=== PATIENT | female | born 1955 | race Caucasian/White ===

== ENCOUNTER 2025-03-03 14:57 | Emergency (ER) | payer MEDICARE, SELFPAY ==
[2025-03-03 14:58] VITALS: BP 139/68; PULSE 70; RESP 16; TEMP 36.8; O2SAT 100
--- NOTE | 2025-03-03 15:10 | EKG12_ITS ---
Test Reason : SYNCOPE Blood Pressure : */* mmHG Vent. Rate : 64 BPM Atrial Rate : 64 BPM P-R Int : 154 ms QRS Dur : 108 ms QT Int : 434 ms P-R-T Axes : 77 -48 47 degrees QTcB Int : 447 ms Normal sinus rhythm with sinus arrhythmia Left anterior fascicular block Moderate voltage criteria for LVH, may be normal variant ( R in aVL , Ever product ) Abnormal ECG Confirmed by Selwyn Crow ([id number]), editor in chief newspaper YOMAIRA GUERIN ([id number]) on 03/06/2025 5:50:45 AM Referred By: Confirmed By: Selwyn Crow
--- NOTE | 2025-03-03 15:12 | ED.RN ---
done by ems
[2025-03-03 15:29] LABS: Hematocrit 38.8 % (37-47); Hemoglobin 13.2 g/dL (12.0-15.0); Immature Granulocytes Count 0.010 X10^3/uL (0.0-0.0); Mean Corp Hgb Conc 34.0 g/dL (32-36); Mean Corpuscular Volume 96.3 fL (81-99); Mean Platelet Vol. 10.3 fl (6.2-12.0); NRBC Flagged by Analyzer 0 % (0-5); Platelet Count 256 K/mm3 (150-450); RBC Distribution Width CV 12.4 % (11.6-14.6); RBC Distribution Width SD 43.8 fl (35.1-43.9); Red Blood Count 4.03 M/mm3 (4.2-5.4); White Blood Count 5.7 K/mm3 (4.4-11.0)
[2025-03-03 16:09] LABS: AST(SGOT) 24 U/L (<=31); Alanine Aminotransfer ALT/SGPT 18 U/L (<=34); Albumin, Serum 4.2 g/dL (3.4-4.8); Alkaline Phosphatase 113 U/L (35-104); Anion Gap 11 (5-15); BUN 13 mg/dL (4-19); BUN/Creat Ratio 18.1 RATIO (10-20); Calcium,Total 9.3 mg/dL (7.6-11.0); Carbon Dioxide 24.8 mmol/L (21.0-32.0); Chloride 104 mmol/L (98-108); Globulin 2.7 g/dL (2.2-4.2); Glucose 164 mg/dL (70-99); Potassium 3.2 mmol/L (3.3-5.1)
[2025-03-03 16:45] VITALS: BMI 28.9
[2025-03-03 16:46] VITALS: BP 142/70; PULSE 77; RESP 16; O2SAT 100
[2025-03-03 16:48] VITALS: BP 138/77; BP 143/71; BP 153/87; PULSE 78; PULSE 81; PULSE 88
[2025-03-03 17:18] LABS: Magnesium 2.2 mg/dL (1.5-2.2)
--- NOTE | 2025-03-03 17:29 | EX.ED.DYSGE1 ---
HPI History of Present Illness Chief Complaint: Syncope Narrative Narrative: Chief complaint and HPI: 70-year-old female with no significant past medical history presents for evaluation of near syncope. [place] States she was sitting down when she developed near syncope. Describes lightheadedness, nausea, felt like she was going to need to have a bowel movement such as diarrhea. States she never had a bowel movement. She went to the [facility] and brought to the emergency department for further evaluation. Patient state she has drank less water today than she usually does. She states her symptoms have since resolved. She denies any fever, chills, shortness of breath, chest pain, abdominal pain, dysuria, weakness, numbness/tingling. Review of systems: See HPI Medications: As listed on the chart Allergies: As listed on the chart PFSH: Per chart Vital signs: As listed on the chart. Reviewed. Physical exam: Gen: A&O x3, NAD Head: Normocephalic, atraumatic Eyes: No sclera icterus, conjunctiva clear, PERRL, EOMI ENT: Moist mucous membranes Neck: Trachea midline, No JVD, full range of motion CV: RRR, no murmurs, no peripheral edema Resp: Lungs CTA BL, no w/r/c GI: Abd soft, non-distended, non-tender, no r/r/g Musc: Full ROM, no deformity, strength+5/5 in all extremities Skin: Warm, dry Neuro: Alert, oriented, grossly intact, sensation intact Psych: Cooperative, appropriate mood and affect PFSH PFSH Medical History no medical history Home Medications ?Medication ?Instructions ?Recorded ?Last Taken ?Type NK 03/03/25 Unknown History Allergy/AdvReac Type Severity Reaction Status Date / Time Penicillins Allergy Rash Verified 03/03/25 15:03 Social History Smoking Status: Never smoker EXAM Physical Exam Const Vital Signs: 03/03/25 14:58 03/03/25 16:46 03/03/25 16:46 Temperature 98.3 F Temperature Source Oral Pulse Rate 70 77 Pulse Rate [Lying] Pulse Rate [Sitting (for 1 minute prior to obtaining)] Pulse Rate [Standing (for 1 minute prior to obtaining)] Respiratory Rate 16 16 Respiratory Effort Respiratory Pattern Blood Pressure 139/68 H 142/70 H Blood Pressure [Lying] Blood Pressure [Sitting (for 1 minute prior to obtaining)] Blood Pressure [Standing (for 1 minute prior to obtaining)] Blood Pressure Mean 91 94 Blood Pressure Mean [Lying] Blood Pressure Mean [Sitting (for 1 minute prior to obtaining)] Blood Pressure Mean [Standing (for 1 minute prior to obtaining)] Pulse Ox 100 100 100 Oxygen Delivery Method Room Air Room Air Room Air 03/03/25 16:48 03/03/25 16:53 03/03/25 17:40 Temperature Temperature Source Pulse Rate 76 Pulse Rate [Lying] 81 Pulse Rate [Sitting (for 1 minute prior to obtaining)] 78 Pulse Rate [Standing (for 1 minute prior to obtaining)] 88 Respiratory Rate 16 Respiratory Effort Normal Respiratory Pattern Normal Blood Pressure 147/74 H Blood Pressure [Lying] 138/77 H Blood Pressure [Sitting (for 1 minute prior to obtaining)] 143/71 H Blood Pressure [Standing (for 1 minute prior to obtaining)] 153/87 H Blood Pressure Mean 98 Blood Pressure Mean [Lying] 97 Blood Pressure Mean [Sitting (for 1 minute prior to obtaining)] 95 Blood Pressure Mean [Standing (for 1 minute prior to obtaining)] 109 Pulse Ox 98 Oxygen Delivery Method Room Air 03/03/25 19:10 Temperature Temperature Source Pulse Rate 66 Pulse Rate [Lying] Pulse Rate [Sitting (for 1 minute prior to obtaining)] Pulse Rate [Standing (for 1 minute prior to obtaining)] Respiratory Rate 16 Respiratory Effort Respiratory Pattern Blood Pressure 162/84 H Blood Pressure [Lying] Blood Pressure [Sitting (for 1 minute prior to obtaining)] Blood Pressure [Standing (for 1 minute prior to obtaining)] Blood Pressure Mean 110 Blood Pressure Mean [Lying] Blood Pressure Mean [Sitting (for 1 minute prior to obtaining)] Blood Pressure Mean [Standing (for 1 minute prior to obtaining)] Pulse Ox 99 Oxygen Delivery Method Room Air MDM MDM MDM Narrative Medical decision making narrative: 70-year-old female with no significant past medical history presents for evaluation of near syncope. Patient [place]. States she was sitting down when she developed near syncope. Describes lightheadedness, nausea, felt like she was going to need to have a bowel movement such as diarrhea. States she never had a bowel movement. She went to the [place] [facility] and brought to the emergency department for further evaluation. Symptoms have since resolved. On presentation, patient no acute distress. Nontoxic-appearing. Mildly hypertensive. Differential diagnosis includes but is not limited to dehydration, electrolyte abnormality, arrhythmia, anemia, UTI, less likely ACS. Partial laboratory protocol was started in triage. Orthostatic vital signs negative. NS bolus ordered. EKG and chest x-ray reviewed, see below. CBC unremarkable. No anemia leukocytosis. CMP relatively unremarkable except for hypokalemia of 3.2. P.o. potassium ordered. Magnesium level unremarkable. Troponin unremarkable x 2. UA negative for UTI. At this point in time, no clear etiology for patient's near syncope. Suspect mild dehydration. She is ambulated in the emergency department without difficulty. She is currently asymptomatic. Follow-up with PCP. She confirmed understand the plan. Patient stable to discharge home EKG: Interpreted by me/EM physician: EKG shows normal sinus rhythm with sinus arrhythmia. No ST elevation. Heart rate 64 Diagnostic: Interpreted by me/EM physician: Chest x-ray without pneumonia, effusion, cardiomegaly, pneumothorax Impression: 1. Near syncope 2. Mild hypokalemia Lab Data Labs: Laboratory Results - last 24 hr 03/03/25 03/03/25 03/03/25 15:20 17:42 17:46 WBC 5.7 RBC 4.03 L Hgb 13.2 Hct 38.8 MCV 96.3 MCH 32.8 H MCHC 34.0 RDW Std Deviation 43.8 RDW Coeff of [place] 12.4 Plt Count 256 MPV 10.3 Immature Gran % (Auto) 0.200 Neut % (Auto) 65.4 Lymph % (Auto) 25.7 Stanley % (Auto) 6.9 Eos % (Auto) 0.9 Baso % (Auto) 0.9 Absolute Neuts (auto) 3.7 Absolute Lymphs (auto) 1.46 Nucleated RBC % 0 Sodium 140 Potassium 3.2 L Chloride 104 Carbon Dioxide 24.8 Anion Gap 11 BUN 13 Creatinine 0.73 Est GFR (MDRD) Non-Af 87 BUN/Creatinine Ratio 18.1 Glucose 164 H Calcium 9.3 Magnesium 2.2 Total Bilirubin 0.36 AST 24 ALT 18 Alkaline Phosphatase 113 H Troponin T High Sens 13 Troponin T Hi Sens 2 Hr 10 Total Protein 6.9 Albumin 4.2 Globulin 2.7 Albumin/Globulin Ratio 1.6 Urine Color Yellow Urine Clarity Clear Urine pH 6.5 Ur Specific [place] 1.010 Urine Protein 15 H Urine Glucose (UA) Normal Urine Ketones Negative Urine Occult Blood Negative Urine Nitrite Negative Urine Bilirubin Negative Urine Urobilinogen Normal Ur Leukocyte Esterase Negative Urine RBC 0 SEEN Urine WBC 0 SEEN Ur Squamous Epith Cells 0 SEEN Urine Bacteria 0 SEEN Urine Mucus 0 SEEN Radiography Diagnostic Testing: Clinical Impression(s) from Imaging Studies Chest X-Ray 03/03/25 18:10 IMPRESSION: No radiographic evidence for an acute pulmonary infiltrate. - Chronic findings discussed above. Reading Location: [id number] Discharge Plan Triage Chief Complaint: Syncope ED Provider: Torres Church Dx/Rx/DC Orders Prescriptions: No Action NK Primary Care Provider: EDA CHICAS Referrals: EDA CHICAS DO [Primary Care Provider] - Print Language: Japanese
[2025-03-03 17:36] LABS: Troponin T High Sensitivity 13 ng/L (<=14)
[2025-03-03] MEDS: 0.9% Normal Saline (1000mL) 1,000 ML 1000 ML IV (17:36)
[2025-03-03] MEDS: Potassium Chloride Oral Soln 20 MEQ/15 ML UDC 40 MEQ PO (17:37)
[2025-03-03 17:40] VITALS: BP 147/74; PULSE 76; RESP 16; O2SAT 98
[2025-03-03 17:47] LABS: Mucous, Urine 0 SEEN /hpf (<or=2+); Red Blood Cells-Urine 0 SEEN /hpf (0-5); Squamous Epithelial Cells - UA 0 SEEN /hpf (5-10)
[2025-03-03 17:49] LABS: Glucose, Dipstick Normal (Normal); Ketone-Dipstick Negative (Negative); Leukocyte Esterase-Dipstick Negative /ul (Negative); Nitrite-Dipstick Negative (Negative); Occult Blood-Urine Negative /ul (Negative); Protein-Dipstick 15 mg/dl (Negative); Specific Gravity, Urine 1.010 (1.002-1.030); Urine Bilirubin Dipstick Negative (Negative)
[2025-03-03 18:01] LABS: Color, Urine Yellow (Yellow)
--- NOTE | 2025-03-03 18:10 | RAD_ITS ---
PROCEDURE: CHEST PA AND LATERAL 03/03/2025 REASON FOR EXAM: NEAR SYNCOPE TECHNIQUE: Procedure Code: RADCXR Modality: DX Procedure: CHEST PA AND LATERAL COMPARISON: None FINDINGS: Lungs: The lungs are symmetrically expanded. Lung volumes are slightly pronounced. This could be due to vigorous inspiratory effort or underlying changes of COPD/emphysema. Mildly coarsened reticular lung markings noted, likely secondary to chronic interstitial thickening. Biapical parenchymal scarring. There is no consolidation. There is no peribronchial thickening. Pleura: No significant pleural effusion seen. There is no evidence of pneumothorax. Mediastinum: There is no mediastinal widening or mediastinal shift. Heart: The cardiac silhouette is not enlarged. Vascular: Calcified aortic atherosclerosis. Daysi: The pulmonary daysi are not enlarged or retracted. Osseous: No acute fracture is seen. Degenerative changes of the spine. RAD/Chest PA and Lateral IMPRESSION: No radiographic evidence for an acute pulmonary infiltrate. - Chronic findings discussed above. Reading Location: [id number]
[2025-03-03 19:05] LABS: Troponin T High Sens 2 HR 10 ng/L (<=14)
[2025-03-03 19:10] VITALS: BP 162/84; PULSE 66; RESP 16; O2SAT 99
[2025-03-03 19:21] VITALS: BP 161/91; PULSE 66; RESP 16; TEMP 36.7; O2SAT 100
== END 2025-03-03 19:22 | disposition home or self-care (01) ==
PROVIDERS: Emergency Provider Surgery; PCP Family Medicine; Visit Provider Surgery
DX: R55 Syncope and collapse (principal); E87.6 Hypokalemia
CPT/HCPCS: 71046; 80053; 81001; 83735; 84484; 85025; 93005; 96360; 99285; A4216